=== PATIENT | female | born 1980 | race Caucasian/White ===

== ENCOUNTER 2017-08-20 19:08 | Emergency (ER) | payer OTHER ==
[~2017-08-20] VITALS: Ht 163.8 cm; Wt 63.0 kg
[2017-08-20 19:20] VITALS: Ht 163.8 cm; Wt 63.0 kg
[2017-08-20] MEDS ORDERED: SODIUM CHLORIDE 0.9% 1000ML 2,000 ML IV STA (19:36)
[2017-08-20] MEDS ORDERED: ONDANSETRON INJ 2 MG/ML 2 ML VIAL IV STA (19:36)
--- NOTE | 2017-08-20 19:47 | EMERGENCY ROOM VISIT NOTE ---
History Report prepared by Ana Maria: Zev Sloan Under the Supervision of: Dr. Bertin Romero M.D. First contact with patient: 19:24 Chief Complaint: ABDOMINAL PAIN Stated Complaint: MONO- EXTREME LEFT SIDE ABDOMINAL PAIN History of Present Illness The patient is a 37 year old female who presents to the Emergency Room with complaints of worsening abdominal pain starting two days ago. She currently is in minimal discomfort, though prior to arrival it was a 9/10 in severity. The patient states that she has been fatigued for the past three weeks, so she got blood work done, and she tested positive for a mono. She states that she is currently nauseous, light headed, dizzy, and she has been having fevers. She denies any cough, congestion, hematuria, and burning with urination. The patient notes that she feels bloated, and she is about to have her period. She has not had any abdominal surgery, and she is not on any blood thinners. She denies any history of kidney stone, though she has a history of ovarian cysts. Source of History: patient Onset: two days ago Position: abdomen Symptom Intensity: minimal Timing: worsening Associated Symptoms: + fevers, + nausea, + fatigue, No cough, No urinary symptoms Review of Systems See HPI for pertinent positives and negatives. A total of ten systems were reviewed and were otherwise negative. Past Medical & Surgical Medical Problems: (1) Ovarian cyst Social History Smoking Status: Never Smoker Marital Status: Housing Status: lives with family Occupation Status: employed Current/Historical Medications Scheduled Cholecalciferol (Vitamin D3), 1 TAB PO DAILY Cyanocobalamin (B12), 1 TAB PO DAILY Ferrous Sulfate (Iron), 1 TAB PO DAILY Fish Oil ([place]-3), 1 CAP PO DAILY Zinc Gluconate (Zinc), 1 TAB PO DAILY Allergies Coded Allergies: No Known Allergies (Unverified , 08/20/17) Physical Exam Vital Signs Date Time Temp Pulse Resp B/P (MAP) Pulse Ox O2 Delivery O2 Flow Rate FiO2 08/21/17 00:55 36.8 84 16 116/85 99 08/21/17 00:30 84 116/85 99 Room Air 08/21/17 00:05 81 99 Room Air 08/20/17 22:21 108 16 129/82 100 Room Air 08/20/17 20:41 99 08/20/17 20:15 98 25 136/91 100 Room Air 08/20/17 19:20 36.8 120 16 123/77 100 Room Air Physical Exam GENERAL: Awake, alert, uncomfortable-appearing, in no distress HENT: Dry mucous membranes. Normocephalic, atraumatic. Oropharynx unremarkable. EYES: Normal conjunctiva. Sclera non-icteric. NECK: Supple. No nuchal rigidity. FROM. No JVD. RESPIRATORY: Clear to auscultation. CARDIAC: Regular rate, normal rhythm. Extremities warm and well perfused. Pulses equal. ABDOMEN: Mild right upper quadrant tenderness. No peritoneal signs. Soft, non- distended. No rebound or guarding. No masses. RECTAL: Deferred. MUSCULOSKELETAL: Chest examination reveals no tenderness. The back is symmetrical on inspection without obvious abnormality. There is no CVA tenderness to palpation. No joint edema. LOWER EXTREMITIES: Calves are equal size bilaterally and non-tender. No edema. No discoloration. NEURO: Normal sensorium. No sensory or motor deficits noted. SKIN: No rash or jaundice noted. Medical Decision & Procedures ER Provider Diagnostic Interpretation: Radiology results as stated below per my review and radiologist interpretation: CHEST ONE VIEW PORTABLE HISTORY: 37 years-old Female ABDOMINAL PAIN/GI acute generalized abdominal pain COMPARISON: CT 08/20/2017 TECHNIQUE: Portable upright AP view of the chest FINDINGS: Cardiomediastinal and hilar silhouettes are within normal limits. There is no pneumothorax, pleural effusion, focal airspace consolidation or overt pulmonary edema. The bones of the chest are grossly intact. Mild convex right curvature of the midthoracic spine. IMPRESSION: No acute cardiopulmonary process. The above report was generated using voice recognition software. It may contain grammatical, syntax or spelling errors. Electronically signed by: Khang Grier M.D. 08/20/2017 9:39 PM Dictated Date/Time: 08/20/2017 9:38 PM ABDOMEN AND PELVIS CT WITH IV CONTRAST CT DOSE: 258.37 mGy.cm HISTORY: Acute upper abdominal pain. upper abd pain TECHNIQUE: Multiaxial CT images of the abdomen and pelvis were performed following the use of intravenous contrast. A dose lowering technique was utilized adhering to the principles of ALARA. COMPARISON STUDY: None. FINDINGS: Lung bases are generally clear. There is no pneumoperitoneum or pneumatosis identified. The imaged inferior cardiac chambers are unremarkable. The liver, spleen, pancreas, gallbladder and adrenal glands are unremarkable. There is no intrahepatic biliary ductal dilation. The kidneys, ureters and urinary bladder are within normal limits. There is mild free pelvic fluid. Peripherally enhancing cystic structure of the left adnexum measures 1.8 x 1.9 cm. Uterus is unremarkable. The left gonadal vein is mildly dilated, 11 mm there is prominent vascularity within the pelvis adjacent to the adnexa. No gonadal vein thrombus identified. Abdominal aorta is normal in course and caliber. There is no bulky adenopathy. There is no bowel obstruction or focal bowel wall thickening. The appendix is not definitively seen. No secondary signs of acute appendicitis. Soft tissues are unremarkable. Bones appear intact. No significant degenerative changes. IMPRESSION: 1. Peripherally enhancing cystic structure of the left ovary suggests involuting follicle, 1.9 cm with mild associated likely physiologic free pelvic fluid. Prominence of the pelvic vasculature with mild dilation of the left gonadal vein may reflect pelvic venous insufficiency. 2. Appendix not definitively seen. No secondary signs of acute appendicitis. 3. No bowel obstruction. Electronically signed by: Khang Grier M.D. 08/20/2017 9:17 PM Dictated Date/Time: 08/20/2017 9:11 PM STATRAD: Preliminary Findings Only See Final Report For Complete Findings US PELVIC/ENDOVAG: CT abdomen and pelvis tonight. Uterus unremarkable. Endometrial stripe thickness upper limits normal 16.4 mm, likely due to phase of cycle. 1.7 cm complex left ovarian collapsed corpus luteal cyst. Left adnexal varicosities measuring up to 4 mm may be pelvic congestion syndrome. Right ovary unremarkable. Small free fluid around the bilateral ovary and in the cul-de-sac. Mobile debris in the urinary bladder Radiologist: Paulo Reyes M.D. Laboratory Results 08/20/17 20:00 Red Blood Count 4.02, Mean Corpuscular Volume 95.8, Mean Corpuscular Hemoglobin 32.3, Mean Corpuscular Hemoglobin Concent 33.8, Mean Platelet Volume 9.3, Neutrophils (%) (Auto) 61.5, Lymphocytes (%) (Auto) 27.8, Monocytes (%) (Auto) 8.1, Eosinophils (%) (Auto) 1.8, Basophils (%) (Auto) 0.6, Neutrophils # (Auto) 5.39, Lymphocytes # (Auto) 2.44, Monocytes # (Auto) 0.71, Eosinophils # (Auto) 0.16, Basophils # (Auto) 0.05 08/20/17 20:00 Test 08/20/17 00:00 08/20/17 20:00 Urine Color YELLOW Urine Appearance CLEAR (CLEAR) Urine pH 5.5 (4.5-7.5) Urine Specific [place] 1.013 (1.000-1.030) Urine Protein NEG (NEG) Urine Glucose (UA) NEG (NEG) Urine Ketones NEG (NEG) Urine Occult Blood NEG (NEG) Urine Nitrite NEG (NEG) Urine Bilirubin NEG (NEG) Urine Urobilinogen NEG (NEG) Urine Leukocyte Esterase NEG (NEG) Urine Test NEG (NEG) White Blood Count 8.77 K/uL (4.8-10.8) Red Blood Count 4.02 M/uL (4.2-5.4) Hemoglobin 13.0 g/dL (12.0-16.0) Hematocrit 38.5 % (37-47) Mean Corpuscular Volume 95.8 fL (80-100) Mean Corpuscular Hemoglobin 32.3 pg (25-34) Mean Corpuscular Hemoglobin Concent 33.8 g/dl (32-36) Platelet Count 261 K/uL (130-400) Mean Platelet Volume 9.3 fL (7.4-10.4) Neutrophils (%) (Auto) 61.5 % Lymphocytes (%) (Auto) 27.8 % Monocytes (%) (Auto) 8.1 % Eosinophils (%) (Auto) 1.8 % Basophils (%) (Auto) 0.6 % Neutrophils # (Auto) 5.39 K/uL (1.4-6.5) Lymphocytes # (Auto) 2.44 K/uL (1.2-3.4) Monocytes # (Auto) 0.71 K/uL (0.11-0.59) Eosinophils # (Auto) 0.16 K/uL (0-0.5) Basophils # (Auto) 0.05 K/uL (0-0.2) RDW Standard Deviation 45.7 fL (36.4-46.3) RDW Coefficient of Variation 13.1 % (11.5-14.5) Immature Granulocyte % (Auto) 0.2 % Immature Granulocyte # (Auto) 0.02 K/uL (0.00-0.02) Anion Gap 9.0 mmol/L (3-11) Est Creatinine Clear Calc Drug Dose 91.7 ml/min Estimated GFR () 120.0 Estimated GFR (Non- 103.5 BUN/Creatinine Ratio 20.0 (10-20) Calcium Level 8.7 mg/dl (8.5-10.1) Total Bilirubin 0.3 mg/dl (0.2-1) Direct Bilirubin < 0.1 mg/dl (0-0.2) Aspartate Amino Transf (AST/SGOT) 15 U/L (15-37) Alanine Aminotransferase (ALT/SGPT) 32 U/L (12-78) Alkaline Phosphatase 60 U/L (45-117) Total Protein 7.9 gm/dl (6.4-8.2) Albumin 4.4 gm/dl (3.4-5.0) Lipase 388 U/L (73-393) Laboratory results reviewed by me Medications Administered Medications (Trade) Dose Ordered Sig/Bruce Route Start Time Stop Time Status Last Admin Dose Admin Ondansetron HCl (Zofran Inj) 4 mg NOW STAT IV 08/20/17 19:36 08/20/17 19:39 DC 08/20/17 20:08 4 MG Sodium Chloride 2,000 ml @ 999 mls/hr Q2H1M STAT IV 08/20/17 19:36 08/20/17 21:36 DC 08/20/17 19:36 999 MLS/HR ECG Indication: abdominal pain Rate (beats per minute): 94 Rhythm: normal sinus Findings: no acute ischemic change, other (normal axis) ED Course 1923: The patient was evaluated in room A2. A complete history and physical exam was performed. 1935: Sodium Chloride 2000 ml @ 999 mls/hr IV, Zofran 4mg IV 2141: I reevaluated the patient, and she is feeling better, but she is having some venous insufficiency in her pelvis, so she is getting a transvaginal ultrasound. Medical Decision I reviewed the patient's past medical history, medications, and the nursing notes as described above. Differential diagnoses include: Gastroenteritis, gastritis, pneumonia, biliary etiology, splenic rupture, kidney stone, UTI, pyelonephritis. The patient is a 37-year-old woman who presents to emergency department with left flank pain in the setting of recent diagnosis of mono per history of present illness. Arrival the patient appears uncomfortable but in no acute distress. She afebrile with stable vital signs. Labs unremarkable with WBC within normal limits. CT scan of the area and pelvis shows corpus luteal cyst, likely physiologic free fluid in the pelvis, and question of venous congestion of the pelvis. Further characterized with transvaginal ultrasound which shows signs consistent with pelvic congestion syndrome. At this time the cause of the patient's symptom is unclear but may be related to these findings. Patient feeling improved after IV fluids and Toradol. Findings and plan for follow-up reviewed with patient. Patient agreeable and d/c'd per discharge instructions. Impression Primary Impression: Left flank pain Additional Impression: Pelvic congestion syndrome Scribe Attestation The scribe's documentation has been prepared under my direction and personally reviewed by me in its entirety. I confirm that the note above accurately reflects all work, treatment, procedures, and medical decision making performed by me. Departure Information Dispostion Home / Self-Care Referrals Edison Levy M.D. 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 The cause of your symptoms is not clear at this time but may be due to an ovarian cyst or possibly pelvic congestion syndrome. Otherwise, your exam, CT scan, ultrasound and lab results did not show signs of an emergent condition at this time. Acetaminophen or Ibuprofen for pain as needed. Given your recent diagnosis of mono you should avoid any activities that could risk trauma to your spleen, which includes rock-climbing. Return to the emergency department for worsening symptoms as described in the accompanying instructions. ABDOMEN AND PELVIS CT WITH IV CONTRAST CT DOSE: 258.37 mGy.cm HISTORY: Acute upper abdominal pain. upper abd pain TECHNIQUE: Multiaxial CT images of the abdomen and pelvis were performed following the use of intravenous contrast. A dose lowering technique was utilized adhering to the principles of ALARA. COMPARISON STUDY: None. FINDINGS: Lung bases are generally clear. There is no pneumoperitoneum or pneumatosis identified. The imaged inferior cardiac chambers are unremarkable. The liver, spleen, pancreas, gallbladder and adrenal glands are unremarkable. There is no intrahepatic biliary ductal dilation. The kidneys, ureters and urinary bladder are within normal limits. There is mild free pelvic fluid. Peripherally enhancing cystic structure of the left adnexum measures 1.8 x 1.9 cm. Uterus is unremarkable. The left gonadal vein is mildly dilated, 11 mm there is prominent vascularity within the pelvis adjacent to the adnexa. No gonadal vein thrombus identified. Abdominal aorta is normal in course and caliber. There is no bulky adenopathy. There is no bowel obstruction or focal bowel wall thickening. The appendix is not definitively seen. No secondary signs of acute appendicitis. Soft tissues are unremarkable. Bones appear intact. No significant degenerative changes. IMPRESSION: 1. Peripherally enhancing cystic structure of the left ovary suggests involuting follicle, 1.9 cm with mild associated likely physiologic free pelvic fluid. Prominence of the pelvic vasculature with mild dilation of the left gonadal vein may reflect pelvic venous insufficiency. 2. Appendix not definitively seen. No secondary signs of acute appendicitis. 3. No bowel obstruction. Preliminary Findings Only See Final Report For Complete Findings US PELVIC/ENDOVAG: CT abdomen and pelvis tonight. Uterus unremarkable. Endometrial stripe thickness upper limits normal 16.4 mm, likely due to phase of cycle. 1.7 cm complex left ovarian collapsed corpus luteal cyst. Left adnexal varicosities measuring up to 4 mm may be pelvic congestion syndrome. Right ovary unremarkable. Small free fluid around the bilateral ovary and in the cul-de-sac. Mobile debris in the urinary bladder Radiologist: Paulo Reyes M.D. Problem Qualifiers
[2017-08-20] MEDS ORDERED: ZINC30TA3 PO (20:04)
[2017-08-20] MEDS ORDERED: FERR1TAB23 PO (20:04)
[2017-08-20] MEDS ORDERED: CHOL1000 PO (20:04)
[2017-08-20] MEDS ORDERED: CYAN100073 PO (20:04)
[2017-08-20] MEDS ORDERED: OMEG10007 PO (20:06)
[2017-08-20 20:18] LABS: BASO % 0.6 %; BASO ABS # 0.05 K/uL (0-0.2); COMPLETE YES; EOS % 1.8 %; HEMATOCRIT 38.5 % (37-47); IG% 0.2 %; LYMPH % 27.8 %; LYMPH ABS # 2.44 K/uL (1.2-3.4); MEAN CELL VOLUME 95.8 fL (80-100); MEAN CORPUSCULAR HEMOGLOBIN 32.3 pg (25-34); MEAN CORPUSCULAR HGB CONC 33.8 g/dl (32-36); MEAN PLATELET VOLUME 9.3 fL (7.4-10.4); MONO % 8.1 %; NEUT % 61.5 %; PLATELET COUNT 261 K/uL (130-400); RED BLOOD COUNT 4.02 M/uL (4.2-5.4); WHITE BLOOD COUNT 8.77 K/uL (4.8-10.8)
[2017-08-20 20:42] LABS: ALT/SGPT 32 U/L (12-78); AST/SGOT 15 U/L (15-37); BLOOD UREA NITROGEN 15 mg/dl (7-18); CALCIUM 8.7 mg/dl (8.5-10.1); CARBON DIOXIDE 23 mmol/L (21-32); CHLORIDE 108 mmol/L (98-107); CREATININE 0.74 mg/dl (0.60-1.20); GLUCOSE 80 mg/dl (70-99); POTASSIUM 3.5 mmol/L (3.5-5.1); SODIUM 140 mmol/L (136-145)
[2017-08-20 20:45] LABS: ALKALINE PHOSPHATASE 60 U/L (45-117)
[2017-08-20] MEDS ORDERED: OPTIRAY 320 IV PRN (20:45)
[2017-08-20 20:56] LABS: URINE APPEARANCE CLEAR (CLEAR); URINE BILIRUBIN NEG (NEG); URINE COLOR YELLOW; URINE NITRITE NEG (NEG); URINE PH 5.5 (4.5-7.5); URINE SPECIFIC GRAVITY 1.013 (1.000-1.030); UROBILINOGEN NEG (NEG); ZZUR CULT IF INDIC CLEAN CATCH NO
[2017-08-20 21:00] LABS: MANUAL MICROSCOPIC REQUIRED? NO; REVIEW REQ? NO
--- NOTE | 2017-08-20 21:18 | DIAGNOSTIC IMAGING REPORT ---
ABDOMEN AND PELVIS CT WITH IV CONTRAST CT DOSE: 258.37 mGy.cm HISTORY: Acute upper abdominal pain. upper abd pain TECHNIQUE: Multiaxial CT images of the abdomen and pelvis were performed following the use of intravenous contrast. A dose lowering technique was utilized adhering to the principles of ALARA. COMPARISON STUDY: None. FINDINGS: Lung bases are generally clear. There is no pneumoperitoneum or pneumatosis identified. The imaged inferior cardiac chambers are unremarkable. The liver, spleen, pancreas, gallbladder and adrenal glands are unremarkable. There is no intrahepatic biliary ductal dilation. The kidneys, ureters and urinary bladder are within normal limits. There is mild free pelvic fluid. Peripherally enhancing cystic structure of the left adnexum measures 1.8 x 1.9 cm. Uterus is unremarkable. The left gonadal vein is mildly dilated, 11 mm there is prominent vascularity within the pelvis adjacent to the adnexa. No gonadal vein thrombus identified. Abdominal aorta is normal in course and caliber. There is no bulky adenopathy. There is no bowel obstruction or focal bowel wall thickening. The appendix is not definitively seen. No secondary signs of acute appendicitis. Soft tissues are unremarkable. Bones appear intact. No significant degenerative changes. IMPRESSION: 1. Peripherally enhancing cystic structure of the left ovary suggests involuting follicle, 1.9 cm with mild associated likely physiologic free pelvic fluid. Prominence of the pelvic vasculature with mild dilation of the left gonadal vein may reflect pelvic venous insufficiency. 2. Appendix not definitively seen. No secondary signs of acute appendicitis. 3. No bowel obstruction. Electronically signed by: Khang Grier M.D. 08/20/2017 9:17 PM Dictated Date/Time: 08/20/2017 9:11 PM
--- NOTE | 2017-08-20 21:40 | DIAGNOSTIC IMAGING REPORT ---
CHEST ONE VIEW PORTABLE HISTORY: 37 years-old Female ABDOMINAL PAIN/GI acute generalized abdominal pain COMPARISON: CT 08/20/2017 TECHNIQUE: Portable upright AP view of the chest FINDINGS: Cardiomediastinal and hilar silhouettes are within normal limits. There is no pneumothorax, pleural effusion, focal airspace consolidation or overt pulmonary edema. The bones of the chest are grossly intact. Mild convex right curvature of the midthoracic spine. IMPRESSION: No acute cardiopulmonary process. The above report was generated using voice recognition software. It may contain grammatical, syntax or spelling errors. Electronically signed by: Khang Grier M.D. 08/20/2017 9:39 PM Dictated Date/Time: 08/20/2017 9:38 PM
[2017-08-21 00:55] VITALS: BP 116/85; PULSE 84; TEMP 36.8; O2SAT 99
--- NOTE | 2017-08-21 06:49 | DIAGNOSTIC IMAGING REPORT ---
EXAMINATION: PELVIC ULTRASOUND CLINICAL HISTORY: Left-sided pelvic pain RULE OUT TORSION COMPARISON STUDY: CT scan dated 08/20/2017 FINDINGS: The uterus measured 9.1 x 4.5 x 5.7 cm.. There are left adnexal varicosities. The endometrial stripe measured 16 mm. The right ovary measured 33 x 18 x 30 mm. The left ovary measured 35 x 23 x 30 mm. There is a 19 mm complex left ovarian nodule, statistically representing an involuting cyst.. There is no ultrasonographic evidence of ovarian torsion. It should be noted that ovarian torsion can be present with normal Doppler ultrasonographic findings. There is a small amount of free fluid within the pelvis. There is a small amount of mobile debris within the bladder. IMPRESSION: 1. 19 mm complex left ovarian nodule, statistically representing an involuting cyst 2. No ultrasonographic evidence of ovarian torsion 3. Left adnexal varicosities 4. Small amount of free fluid within the pelvis. Electronically signed by: Tomi Lu M.D. 08/21/2017 6:47 AM Dictated Date/Time: 08/21/2017 6:44 AM
== END 2017-08-21 00:56 | disposition home or self-care (01) ==
LOC: C.EDB 19:11 → C.EDA 08-21 00:56
DX: R10.9 Unspecified abdominal pain (principal); N94.89 Other specified conditions associated with female genital organs and menstrual cycle